=== PATIENT | male | born 1985 | race Caucasian/White ===

== ENCOUNTER → 2017-10-21 | Outpatient (CLI) | payer BC | END | disposition home or self-care (01) | LOC: PCVCIMAG 08:06 | DX: I71.2 Thoracic aortic aneurysm, without rupture (principal); I42.0 Dilated cardiomyopathy; I08.8 Other rheumatic multiple valve diseases | CPT/HCPCS: 93306 ==

== ENCOUNTER → 2018-06-16 | Outpatient (CLI) | payer BC, OTHER ==
[~2018-06-16] MED LIST: BENZOCAINE ONE 20% MUCOSAL SPRAY.; HEPARIN 1,000 UNIT/ML VIAL for PCVC ONE; IODIXANOL 270 MG/ML 100 ML VIAL. ONE; IOHEXOL 350 MG/ML 100 ML VIAL. ONE; IOHEXOL 350 MG/ML 50 ML VIAL. ONE; IV NORMAL SALINE 1000ML BAG 1,000 ML ONE; IV NORMAL SALINE 500ML BAG 1,500 ML ONE; LIDOCAINE 1% Multi-Dose 50 ML VIAL. ONE; LIDOCAINE 1%/EPI 1:100,000 20 ML VIAL. ONE; MIDAZOLAM HCL/PF 2 MG/2 ML VIAL. ONE; fentaNYL PF VIAL 100 MCG/2 ML VIAL ONE
--- NOTE | 2018-06-16 13:01 | PCVCIMAG ---
APPROVED REPORT Study performed: 06/16/2018 09:14:16 EXAM: Comprehensive 2D, Doppler, and color-flow Echocardiogram Patient Location: Echo lab Status: routine BSA: 2.04 HR: 65 bpmBP: 150/93 mmHg Rhythm: NSR Other Information Study Quality: Good Indications Aortic Valve Disease Hyperlipidemia, Dilated Cardiomyopathy, Thoracic Aortic Aneurysm, Coarctation of Aorta. Procedure After obtaining informed consent, patient underwent transesophageal echo in the [facility]. Type of Sedation : Conscious Sedation Sedation was administered by Francisca Bang RN. Sedation was achieved intravenously with: Versed (4 mg) Fentanyl (100mcg) Echo enhancement agent administered: Agitated Saline The MARTINEZ was performed without complications. Throughout the procedure, the blood pressure, pulse oximetry, cardiac rhythm, and rate were monitored. The patient tolerated the procedure without adverse effects. Recovery from conscious sedation was uneventful and vital signs were stable. Left Ventricle The left ventricle is mildly dilated There is normal LV segmental wall motion. There is normal left ventricular wall thickness. Left ventricular systolic function is at the lower limits of normal. LVEF is 50%. Right Ventricle The right ventricle is normal size. The right ventricular systolic function is normal. Atria The left atrium size is normal. No thrombus in left atrium or left atrial appendage. No shunting by contrast bubble injection The right atrium size is normal. Aortic Valve Aortic valve is bicuspid. Moderate to moderately severe aortic regurgitation. There is no aortic valvular stenosis. Mitral Valve The mitral valve is normal in structure. Mild mitral regurgitation. No evidence of mitral valve stenosis. Tricuspid Valve The tricuspid valve is normal in structure. There is no tricuspid valve regurgitation noted. Pulmonic Valve The pulmonary valve is normal in structure. There is no pulmonic valvular regurgitation. Great Vessels The aortic root is normal in size. Ascending aorta is dilated measuring 5.3 cm. IVC is normal in size and collapses >50% with inspiration. Pericardium There is no pericardial effusion. <Conclusion> Left ventricular systolic function is at the lower limits of normal. LVEF is 50%. The left ventricle is mildly dilated The left atrium size is normal. No thrombus in left atrium or left atrial appendage. No shunting by contrast bubble injection Aortic valve is bicuspid. Moderate to moderately severe aortic regurgitation. The mitral valve is normal in structure. Mild mitral regurgitation. Ascending aorta is dilated measuring 5.3 cm. There is no pericardial effusion.
--- NOTE | 2018-06-16 16:59 | PCVCINTER ---
APPROVED REPORT Study performed: 06/16/2018 11:19:52 Patient Details Patient Status: Out-Patient Room #: 1 The patient is a 32 year-old Male Event Personnel Queta Abad MD, Beti Espinosa RN, Luc Larson RT(R), Juan Manuel Heller RT(R)() Risk Factors Dysplipidemia (Type: 1), Peripheral Vascular Disease, Hypercholesterolemia, Last Creatanine 0.7Tobacco History (Never) Previous Procedures/Diagnoses Previous Valve Surgery, Valvular heart disease, LV dysfunction, PVD Procedure Narrative The patient was brought electively to the Cardiac Catheterization Laboratory and was prepped and draped in a sterile manner. The right femoral was infiltrated with 1% Lidocaine subcutaneous anesthesia. A 6 sheath was inserted into the right femoral artery. Coronary angiography was performed using coronary diagnostic catheters. The right coronary system was accessed and visualized with a JR4 catheter. The left coronary system was accessed and visualized with a JL6 catheter. The left ventricle was accessed and visualized with a Straight Pigtail catheter. Left ventricular/Aortic Valve gradient assessed via catheter pullback. Left ventriculogram was performed in RIVERA projection. An aortogram of the ascending aorta was performed. Closure device was deployed with a 6 Fr Mynx. Hemostasis was obtained with manual pressure following sheath removal without any complications. The patient tolerated the procedure well and there were no complications associated with the procedure. There was no hematoma. Coronary Angiography The patient's coronary anatomy is left dominant. Diagnostic Cath Left MainNormal left main LADNormal LAD that extended to the distal anterior wall. Diagonal 1Large, single diagonal branch, angiographically normal CircumflexLarge, dominant circumflex, angiographically normal [id number] first marginal branch, angiographically normal [id number], distally arising second marginal branch, angiographically normal L PDANormal posterior descending branch off of a dominant circumflex L PLANormal posterolateral branch Right CoronarySmall, nondominant and angiographically normal Left Ventriculography The left ventricle is mildly dilated in size with normal contractility. The left ventricular ejection fraction is estimated to be 50%. Left ventricular wall motion abnormalities are not present. There is no mitral insufficiency. Dilated ascending aorta, no dissection. Moderately severe aortic insufficiency. Bicuspid aortic valve. Less than a 10 mm gradient at the site of coarctation Hemodynamics The aortic pressure is 141/81 mmHg with a mean of 107 mmHg. The left ventricular pressure is 140/8 mmHg with a mean of 24 mmHg. Conclusion 1. Mild left ventricular enlargement with mild left ventricular dysfunction. Ejection fraction 50% 2. Aneurysmal dilatation of the ascending aorta (5.3cm by MARTINEZ). Bicuspid aortic valve with moderately severe aortic insufficiency 3. Normal left main 4. Normal coronary vasculature. Left coronary dominant circulation. 5. Minimal gradient across a coarctation (<10mm) of the aorta.
== END ==
LOC: PCVCINTER 11:58
PROVIDERS: ATTEND Internal Medicine
DX: I35.1 Nonrheumatic aortic (valve) insufficiency (principal); I71.2 Thoracic aortic aneurysm, without rupture; I34.0 Nonrheumatic mitral (valve) insufficiency; I25.10 Atherosclerotic heart disease of native coronary artery without angina pectoris; I51.7 Cardiomegaly; Q25.1 Coarctation of aorta; K21.9 Gastro-esophageal reflux disease without esophagitis; E78.00 Pure hypercholesterolemia, unspecified; E78.5 Hyperlipidemia, unspecified; I42.0 Dilated cardiomyopathy; Z72.89 Other problems related to lifestyle; Z79.899 Other long term (current) drug therapy
CPT/HCPCS: 93312; 93458; 93567; 99152; 99153; C1751; C1760; C1769; C1894; J1644; J2250; J3010; J3490; J7030; J7040; Q9967; 36252; 93325

== ENCOUNTER → 2019-01-26 | Outpatient (CLI) | payer OTHER ==
--- NOTE | 2019-01-26 15:25 | PCVCIMAG ---
APPROVED REPORT Study performed: 01/26/2019 12:40:24 EXAM: Comprehensive 2D, Doppler, and color-flow Echocardiogram Patient Location: Echo lab Status: routine BSA: 1.98 HR: 64 bpmBP: 122/82 mmHg Rhythm: NSR Other Information Study Quality: Adequate Indications Cardiomyopathy #[address] [place] aortic valve replacement, ascending aorta repair, hx of pericardial effusion 2D Dimensions IVSd: 11.15 (7-11mm)LVOT Diam: 25.38 (18-24mm) LVDd: 51.75 mm PWd: 11.42 (7-11mm)Ascending Ao: 30.87 (22-36mm) LVDs: 40.41 (25-40mm) Left Atrium: 38.88 (27-40mm) Aortic Root: 30.83 mm LV Single Plane 4CH: 43.19 % LV Single Plane 2CH: 56.76 % Biplane EF: 51.6 % Volumes Left Atrial Volume (Systole) Single Plane 4CH: 78.31 mLSingle Plane 2CH: 63.87 mL LA ESV Index: 38.00 mL/m2 Aortic Valve AoV Peak Jean-Claude.: 2.14 m/s AO Peak Gr.: 18.40 mmHgLVOT Max P.44 mmHg AO Mean Gr.: 9.04 mmHgLVOT Mean P.60 mmHg AO V2 Mean: 1.41 m/sLVOT Max V: 0.93 m/s AO V2 VTI: 43.45 cmLVOT Mean V: 0.59 m/s TONY (VTI): 2.22 [id number] V1 VTI: 19.11 cm TONY Vmax: 2.19 cm2 SV (LVOT): 96.66 mL Mitral Valve E/A Ratio: 1.6 MV Decel. Time: 240.12 ms MV E Max Jean-Claude.: 0.95 m/s MV A Jean-Claude.: 0.58 m/s IVRT: 117.65 ms Pulmonary Valve PV Peak Jean-Claude.: 1.05 m/sPV Peak Gr.: 4.38 mmHg Pulmonary Vein P Vein S: 0.43 m/sP Vein A: 0.35 m/s P Vein D: 0.56 m/sP Vein A Dur.: 131.5 msec P Vein S/D Ratio: 0.77 Tricuspid Valve TR Peak Jean-Claude.: 2.48 m/s TR Peak Gr.: 24.52 mmHg TV Vmax: 0.58 m/s Left Ventricle The left ventricle is normal size. There is normal LV segmental wall motion. There is normal left ventricular wall thickness. Left ventricular systolic function is mildly decreased. LVEF is 45-50%. The left ventricular diastolic function is normal. Right Ventricle The right ventricle is normal size. The right ventricular systolic function is normal. Atria Left atrium is mildly dilated. The right atrium size is normal. Aortic Valve Normally functioning #[address] [place] valve in the aortic position. Mild aortic regurgitation, typical for this type of valve. There is no evidence of aortic valve stenosis. Calculated aortic valve area is 2.2 cm2 (maximum pressure gradient of 18 mmHg; mean pressure gradient of 9 mmHg). Mitral Valve The mitral valve is normal in structure. Mild mitral regurgitation. No evidence of mitral valve stenosis. Tricuspid Valve The tricuspid valve is normal in structure. Mild tricuspid regurgitation with PAP of 32 mmHg. Pulmonic Valve The pulmonary valve is normal in structure. Mild pulmonic regurgitation. Great Vessels The aortic root is normal in size. IVC is normal in size and collapses >50% with inspiration. Pericardium There is no pericardial effusion. There is no pleural effusion. <Conclusion> Left ventricular systolic function is mildly decreased. LVEF is 45-50%. Left atrium is mildly dilated. Normally functioning #[address] [facility] aortic valve. Calculated aortic valve area is 2.2 cm2 (maximum pressure gradient of 18 mmHg; mean pressure gradient of 9 mmHg). Mild aortic regurgitation, typical for this type of valve. The mitral valve is normal in structure. Mild mitral regurgitation. Mild tricuspid regurgitation with pulmonary artery pressure of 32 mmHg. There is no pericardial effusion.
== END | disposition home or self-care (01) ==
LOC: PCVCIMAG 12:39
PROVIDERS: ATTEND Internal Medicine
DX: I08.3 Combined rheumatic disorders of mitral, aortic and tricuspid valves (principal); I42.9 Cardiomyopathy, unspecified
CPT/HCPCS: 93306